=== PATIENT | female | born 1970 | race Hispanic/Latino ===

== ENCOUNTER 2017-06-07 09:34 | Emergency (ER) | payer OTHER, MEDICARE ==
[~2017-06-07] VITALS: Ht 162.6 cm; Wt 111.1 kg
[~2017-06-07 09:34] MED LIST: ALPRAZOLAM0.5 M4 PO; BENZTROPINE MESY1 M1 PO; DOXYCYCLINE HY100 M4 PO; DULOXETINE HCL60 MG PO; LATUDA120 M1 PO; PROAIR HFA8.5 GM INH; SEROQUEL XR200 M1 PO; SEROQUEL50 M1 PO
--- NOTE | 2017-06-07 11:06 | ED GENERAL ADULT ---
History of Present Illness General Chief Complaint: Dyspnea (COPD, CHF, Other) Stated Complaint: SOB X FEW WEEKS Source: patient Exam Limitations: no limitations Vital Signs & Intake/Output Vital Signs & Intake/Output Vital Signs Date Time Temp Pulse Resp B/P B/P Pulse O2 O2 Flow FiO2 Mean Ox Delivery Rate 06/07 1117 97 Room Air 06/07 0936 97.1 110 18 131/82 98 Room Air Room Air Allergies Coded Allergies: bupropion (From WELLBUTRIN) (Severe, SEIZURE 06/07/17) Reconcile Medications Albuterol Sulfate (Proair Hfa) 90 MCG HFA.AER.AD 2 PUF INH Q4-6 PRN PRN BRONCHITIS Alprazolam 0.5 MG TABLET 1 TAB PO TIDPRN PRN ANXIETY (Reported) Benztropine Mesylate 1 MG TABLET 1 TAB PO BID UNKNOWN (Reported) Duloxetine HCl 60 MG CAPSULE.DR 1 CAP PO DAILY MENTAL HEALTH (Reported) Lurasidone HCl (Latuda) 120 MG TABLET 1 TAB PO QPM MENTAL HEALTH (Reported) Meloxicam (Mobic) 15 MG TABLET 1 TAB PO DAILY PRN PAIN Quetiapine Fumarate (Seroquel) 50 MG TABLET 1 TAB PO BIDP PRN MENTAL HEALTH ( Reported) Quetiapine Fumarate (Seroquel XR) 200 MG TAB.ER.24H 1 TAB PO QPM MENTAL HEALTH (Reported) Triage Note: PT TO ED WITH C/O SOB FOR FEW WEEKS "ABOUT 5 WEEKS NOW". PT SEEN FOR THE SAME HERE ON May, GIVEN ANTIBIOTIC AND INHALER FOR BRONCITIS. "NOT BETTER, GETTING WORSE". Triage Nurses Notes Reviewed? yes Onset: Gradual Duration: week(s): (5) Timing: recent history Injury Environment: home Severity: moderate Severity Numbers: 8 No Modifying Factors: none Associated Symptoms: chest pain : No Patient currently breastfeeds: No HPI: Patient is a 46-year-old female with past medical history of depression presenting to the emergency department with chief complaint of shortness of breath and left-sided rib pain has been going on for the past 5 weeks. She was seen and evaluated in the emergency departmENT a few weeks ago and diagnosed with bronchitis. She was started on an inhaler and antibiotics. She completed that without relief. Nothing seems to make symptoms better or worse. She does admit to a remote history of smoking but is currently smoke-free. Denies any nausea or vomiting. No fevers or chills. No palpitations. Denies abdominal pain. Still eating and drinking without difficulty. Denies any change in bowel or bladder function. No change in weight. Denies any falls or trauma. No heavy lifting. Pain is achy and throbbing, intermittent and sharp and stabbing over the left ribs radiating to the left flank. Currently moderate. Denies coughing or congestion. (Ginny Lopez) Past History Travel History Traveled to [place] past 21 day No Medical History Any Pertinent Medical History? see below for history Neurological: NONE EENT: NONE Cardiovascular: NONE Respiratory: NONE Gastrointestinal: NONE Hepatic: NONE Renal: NONE Musculoskeletal: NONE Psychiatric: depression Endocrine: NONE Blood Disorders: NONE Cancer(s): NONE VOLCANOLOGY PROFESSOR/Reproductive: NONE Surgical History Surgical History: non-contributory Psychosocial History What is your primary language Syriac Tobacco Use: Never used ETOH Use: denies use Illicit Drug Use: denies illicit drug use Family History Hx Contributory? No (Ginny Lopez) Review of Systems Review of Systems Constitutional: Reports: no symptoms. Comments Review of systems: See HPI, All other systems negative. Constitutional, no chills fever or weight loss HEENT: No visual changes no sore throat no congestion Cardiovascular: No palpitation , orthopnea or ankle swelling Skin, no jaundice no rashes Respiratory: NO cough sputum or hemoptysis GI: No nausea no vomiting : No dysuria No hematuria Muscle skeletal: no back pain, no neck pain, Neurologic: No numbness no confusion, no headaches Psych: No stress anxiety or depression,. Heme/endocrine: No bruising no bleeding no polyuria or polydipsia Immunology: No splenectomy or history of AIDS (Ginny Lopez) Physical Exam Physical Exam General Appearance: well developed/nourished, no apparent distress, alert, awake , comfortable Comments: Well-developed well-nourished person in no acute distress HEENT: Pupils equally round and reactive to light and accommodation. Nose is atraumatic. External auditory canal and Tympanic membranes clear. Pharynx normal. No swelling or edema. Neck: Full range of motion, normal inspection. Back: Nontender, no CVA tenderness. Cardiovascular: Slightly tachycardic rate and rhythms no murmurs rubs or gallops , normal JVP Respiratory: Chest is tender to palpation over the left anterior and lateral ribs. No signs of rash over the skin. No crepitus palpated. No respiratory distress.breath sounds clear to auscultation bilaterally Abdomen: Soft, Sridevi tender palpation in the epigastric region without rebound or guarding, nondistended, no appreciable organomegaly. Normal bowel sounds. No ascites Extremity: No edema, no calf tenderness to palpation, normal and equal pulses. Neuro: Alert oriented x3 Skin: No appreciable rash on exposed skin, skin is warm and dry. Psych: Mood and affect is normal, memory and judgment is normal. Core Measures ACS in differential dx? Yes CVA/TIA Diagnosis: No Sepsis Present: No Sepsis Focused Exam Completed? No (Sukhdeep MENDOZA,Ginny) Progress Differential Diagnoses I considered the following diagnoses in my evaluation of the patient: Pulmonary embolus, ACS, costochondritis, pleurisy ammonia, bronchitis, lung cancer, colitis, muscle strain Diagnostic Imaging: Viewed by Me: Radiology Read. Discussed w/RAD: Radiology Read. Radiology Impression: PATIENT: TARIK CARMEN PRESENT AGE: 46 PATIENT ACCOUNT NO: [id number] : 72 LOCATION: [facility] ORDERING PHYSICIAN: Ginny MENDOZA SERVICE DATE: 06/07/17 EXAM TYPE: RAD - XRY-RIBS UNILATERAL-LEFT EXAMINATION: XR RIBS, LEFT WITH PA CHEST CLINICAL INFORMATION: Pain of 5 weeks' duration. COMPARISON: Prior chest radiographs dated 05/12/2017. TECHNIQUE: 3 views of the left ribs were obtained, together with a frontal view of the thorax. FINDINGS: Lungs are clear. No consolidation, pneumothorax, or pleural effusion. There is stable mild elevation of the right hemidiaphragm. The cardiomediastinal silhouette and pulmonary vasculature are normal. Osseous structures are unremarkable. Ribs are intact. No fractures are identified. IMPRESSION: Unremarkable examination. DICTATED BY: Titi Diego MD DATE/TIME DICTATED:06/07/171400 PHOTOGRAMMETRIC STEREO COMPILER:PEARL DATE/TIME TRANSCRIBED:06/07/171400 CONFIDENTIAL, DO NOT COPY WITHOUT APPROPRIATE AUTHORIZATION. <Electronically signed in Other Vendor System> SIGNED BY: Titi Diego MD 06/07/171406 Initial ED EKG: NSR, SINUS RHYTHM AT 92 BPM, BORDERLINE LEFT AXIS DEVIATION Prior EKG: unchanged (Ginny Lopez) Plan of Care: Orders Procedure Date/time Status Telemetry/Stationary Boiler Fireman 06/07 1105 Active TROPONIN LEVEL 06/07 1105 Complete PARTIAL THROMBOPLASTIN TIME 06/07 110 Complete PROTHROMBIN TIME 06/07 110 Complete LIPASE 06/07 110 Complete D-DIMER 06/07 110 Complete COMPREHENSIVE METABOLIC PANEL 06/07 110 Complete CHOLESTEROL 06/07 110 Complete CBC WITHOUT DIFFERENTIAL 06/07 1105 Complete AMYLASE 06/07 110 Complete EKG 06/07 110 Active Laboratory Tests 06/07/17 1125: Anion Gap 14, Estimated GFR > 60, BUN/Creatinine Ratio 10.0, Glucose 248 H, Calcium 9.6, Total Bilirubin 0.4, AST 44 H, ALT 65 H, Alkaline Phosphatase 92, Troponin I < 0.01, Total Protein 7.3, Albumin 4.0, Globulin 3.3, Albumin/ Globulin Ratio 1.2, Cholesterol 217 H, Amylase < 30 L, Lipase 112, PT 12.1, INR 1.11, APTT 34, D-Dimer High Sensitivty < 200, CBC w Diff NO MAN DIFF REQ, RBC 4.66, MCV 81.6, MCH 27.4, MCHC 33.5, RDW 12.8, MPV 8.4, Gran % 59.4, Lymphocytes % 31.8, Monocytes % 7.1, Eosinophils % 1.2, Basophils % 0.5, Absolute Granulocytes 4.6, Absolute Lymphocytes 2.5, Absolute Monocytes 0.6, Absolute Eosinophils 0.1, Absolute Basophils 0 06/07/2017 1:43:26 PM vitals are stable. No acute changes on EKG. Troponin and d-dimer are negative. No need for CTA of the chest. Patient will go for repeat x-ray. Patient reports total relief after IV Toradol. Symptoms have been constant for the past 5 weeks no indication for repeating troponin. (Ginny Lopez) (Karyna HAUSER,Pa Burr) Departure Departure Time of Disposition: 1418 Disposition: HOME OR SELF CARE Condition: Stable Clinical Impression Primary Impression: Chest wall pain Referrals: Tiffani HAUSER,Mary Ellen Burr (PCP/Family) Additional Instructions: Follow-up with your primary care physician call TO make an appointment in the next 5-7 days. Take anti-inflammatories as prescribed. Return for worsening symptoms or concerns. Your sugar levels were slightly elevated status could be if he ate prior to ER arrival. Patient to follow-up with the primary care physician so they can recheck her blood glucose level. Departure Forms: Customer Survey General Discharge Information Prescriptions: Current Visit Scripts Meloxicam (Mobic) 1 TAB PO DAILY PRN PAIN #15 TAB (Ginny Lopez) PA/MEDICAL TRANSLATOR Co-Sign Statement Statement: ED Attending supervision documentation- [] I saw and evaluated the patient. I have also reviewed all the pertinent lab results and diagnostic results. I agree with the findings and the plan of care as documented in the PA's/MEDICAL TRANSLATOR's documentation. [X] I have reviewed the ED Record and agree with the PA's/MEDICAL TRANSLATOR's documentation. [] Additions or exceptions (if any) to the PAs/MEDICAL TRANSLATOR's note and plan are summarized below: [] (Karyna HAUSER,Pa Burr) Critical Care Note Critical Care Note Critical Care Time: non-applicable (Ginny Lopez)
[2017-06-07 12:05] LABS: ABSOLUTE BASOPHIL COUNT 0 /CUMM (0.0-0.2); ABSOLUTE EOSINOPHIL COUNT 0.1 /CUMM (0.0-0.7); ABSOLUTE GRANULOCYTE CT 4.6 /CUMM (1.4-6.5); ABSOLUTE LYMPH COUNT 2.5 /CUMM (1.2-3.4); ABSOLUTE MONOCYTE COUNT 0.6 /CUMM (0.10-0.60); BASOPHIL % 0.5 % (0.0-2.0); EOSINOPHIL % 1.2 % (0-5); GRANULOCYTE % 59.4 % (42.2-75.2); MEAN CORPUSCULAR HGB 27.4 PG (27.0-31.0); MEAN CORPUSCULAR HGB CONC 33.5 G/DL (33.0-37.0); MEAN CORPUSCULAR VOLUME 81.6 FL (81.0-99.0); MEAN PLATELET VOLUME 8.4 FL (7.4-10.4); PLATELET COUNT 327 /CUMM (130-400); RBC DISTRIBUTION WIDTH 12.8 % (11.5-14.5); RED BLOOD CELL CT 4.66 /CUMM (4.20-5.40); WHITE BLOOD CELL COUNT 7.8 /CUMM (4.8-10.8)
[2017-06-07 12:22] LABS: PT 12.1 SEC (9.4-12.5); PTT 34 SEC (25-37)
[2017-06-07] MEDS ORDERED: MOBIC15 M1 PO (13:50)
--- NOTE | 2017-06-07 14:07 | RADIOLOGY REPORT ---
EXAMINATION: XR RIBS, LEFT WITH PA CHEST CLINICAL INFORMATION: Pain of 5 weeks' duration. COMPARISON: Prior chest radiographs dated 05/12/2017. TECHNIQUE: 3 views of the left ribs were obtained, together with a frontal view of the thorax. FINDINGS: Lungs are clear. No consolidation, pneumothorax, or pleural effusion. There is stable mild elevation of the right hemidiaphragm. The cardiomediastinal silhouette and pulmonary vasculature are normal. Osseous structures are unremarkable. Ribs are intact. No fractures are identified. IMPRESSION: Unremarkable examination.
[2017-06-07 14:27] VITALS: BP 115/73
== END 2017-06-07 14:28 ==
LOC: ERH 09:34
PROVIDERS: Physician Assistant
DX: R07.89 Other chest pain (principal)
CPT/HCPCS: 71100-LT; 93005; 93010; 96374; J1885